=== PATIENT | female | born 1950 | race Two or more races ===

== ENCOUNTER 2016-08-08 21:15 | Emergency (ER) | payer BC ==
[~2016-08-08] VITALS: Ht 157.5 cm; Wt 76.2 kg
[2016-08-08] MEDS ORDERED: LOSARTAN POTASS25 MG ORAL (21:18)
[2016-08-08] MEDS ORDERED: FUROSEMIDE20 M1 ORAL (21:18)
[2016-08-08 21:29] VITALS: BP 132/88
[2016-08-08] MEDS ORDERED: Surgicel 4in x 8in TOPIC ONE (21:45)
--- NOTE | 2016-08-08 21:45 | Emergency Room Report ---
History of Present Illness General Chief Complaint: Laceration Source: Patient, EMS Present Illness HPI Patient is a 23-fyd-homn-old who presented after a fall. Patient reportedly was drinking alcohol earlier in the day. She subsequently fell onto a surface of her kitchen in which she sustained a laceration to her scalp or the laceration was bleeding profusely and she therefore presented to the hospital for further management. The patient reported having had several alcohol drinks. She denied loss of consciousness. Has reports being up to date in her tetanus. Allergies: Coded Allergies: CODEINE (Verified Allergy, Intermediate, 08/08/16) Patient History Past Medical History: see triage record Now: No Reviewed Nursing Documentation: PMH: Agreed, PSxH: Agreed Nursing Documentation-PMH Past Medical History: No History, Except For Hx Hypertension: Yes Review of Systems All Other Systems: negative except mentioned in HPI Physical Exam Vital Signs Date Time Temp Pulse Resp B/P Pulse Ox O2 Delivery O2 Flow Rate FiO2 08/08/16 21:15 99.0 90 15 132/88 99 General Appearance: well appearing, no apparent distress, alert, GCS 15 Head: normocephalic, atraumatic ENT: hearing grossly normal, normal voice Neck: full range of motion, supple Respiratory: no respiratory distress, speaking full sentences Gastrointestinal: normal inspection, normal bowel sounds, non tender, soft Musculoskeletal: no calf tenderness Neurologic: normal inspection, alert, oriented x3, responsive, security officers and guards III-XII nml as tested, motor strength/tone normal, normal gait Psychiatric: mood/affect normal Skin: no rash, laceration - 1cm Procedures Laceration/Wound Repair Laceration/Wound Repair : Consent: Verbal Wound's Depth, Shape: superficial Wound Length (cm): 1 Wound Explored: clean Wound Debrided: minimal Wound Repaired With: beverly - 2 Medical Decision Making Diagnostic Impression: Primary Impression: Laceration Additional Impression: Laceration of scalp ER Course Presented for fall.Differential diagnosis included was not limited to neck fracture, CVA, close head injury, syncopal episode, basilar ischemia, among others. Patient's benign exam and does not appear to require any further imaging or laboratory testing at this time. The patient was offered CT imaging of her head and she declined. Patient was awake alert and oriented was to answer all questions. The laceration was closed with skin beverly. The patient is advised to follow up with primary care doctor in 1-2 days. Patient is advised to return if any worsening condition or if any changes in status that are concerning. Last Vital Signs Date Time Temp Pulse Resp B/P Pulse Ox O2 Delivery O2 Flow Rate FiO2 08/08/16 21:15 99.0 90 15 132/88 99 Status: improved Disposition: HOME, SELF-CARE Condition: Stable Scripts Bacitracin Zinc* (BACITRACIN ZINC*) 1 Each Packet 1 APPLIC TOPIC THREE TIMES A DAY, #20 PACKET Prov: Kayode Herron 08/08/16 Referrals: NOT CHOSEN IPA/,REFERRING (PCP) Kayode Herron Aug 08, 2016 21:45
[2016-08-08] MEDS ORDERED: BACITRACIN ZIN1 EACH TOPIC (21:46)
[2016-08-08 23:00] VITALS: BP 128/90
[2016-08-08 23:07] VITALS: BP 128/90
== END 2016-08-08 23:07 | disposition home or self-care (01) ==
LOC: EDBD 21:15 → EMR 21:35
DX: S01.01XA Laceration without foreign body of scalp, initial encounter (principal); W19.XXXA Unspecified fall, initial encounter; Y92.000 Kitchen of unspecified non-institutional (private) residence as the place of occurrence of the external cause; I10 Essential (primary) hypertension; Z88.6 Allergy status to analgesic agent